=== PATIENT | female | born 1990 | race American Indian/Alaskan Native ===

== ENCOUNTER 2017-06-09 18:31 | Emergency (ER) | payer MEDICAID, OTHER ==
[2017-06-09] MEDS ORDERED: TYLENOL PO ONE (19:45)
[2017-06-09] MEDS ORDERED: TYLENOL ONE (19:45)
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
[2017-06-09 20:32] VITALS: BP 117/78
[2017-06-09] MEDS ORDERED: MOTRIN PO ONE (21:33)
[2017-06-09] MEDS ORDERED: FLEXERIL PO ONE (21:33)
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
== END 2017-06-09 22:33 | disposition home or self-care (01) ==
LOC: ED 18:31
DX: S13.4XXA Sprain of ligaments of cervical spine, initial encounter (principal); S29.012A Strain of muscle and tendon of back wall of thorax, initial encounter; X58.XXXA Exposure to other specified factors, initial encounter; Y93.89 Activity, other specified; Y92.89 Other specified places as the place of occurrence of the external cause; Y99.8 Other external cause status
CPT/HCPCS: 72072; 99283